=== PATIENT | male | born 1995 | race Caucasian/White ===

== ENCOUNTER 2019-08-24 06:19 | Emergency (ER) | payer OTHER ==
[~2019-08-24] VITALS: Ht 182.9 cm; Wt 113.6 kg
[2019-08-24] MEDS ORDERED: ALBUTEROL SULFATE 2.5 MG/0.5 ML INH NEB SOLN NEB ONE (07:15)
--- NOTE | 2019-08-24 07:37 | REP ---
Clinical: Cough and fever with shortness of breath. Comparison: None . Technique: PA and lateral. Findings: The mediastinum and cardiac silhouette are normal. The lung fernandez are clear and without acute consolidation, effusion, or pneumothorax. The skeletal structures are intact and normal. Impression: 1. No acute cardiopulmonary process. Electronically Signed by Eyad Mensah MD 08/24/2019 07:28 A
[2019-08-24 08:43] LABS: INFLUENZA A AMPLIFICATION NEGATIVE (NEGATIVE); INFLUENZA B AMPLIFICATION NEGATIVE (NEGATIVE)
[2019-08-24] MEDS ORDERED: VENTAER INH (09:05)
[2019-08-24] MEDS ORDERED: BENZ200C70 PO (09:05)
[2019-08-24 09:13] VITALS: BP 125/68
== END 2019-08-24 09:13 | disposition home or self-care (01) ==
LOC: M ED 06:19
DX: J06.9 Acute upper respiratory infection, unspecified (principal); B34.9 Viral infection, unspecified; R05 Cough; F17.200 Nicotine dependence, unspecified, uncomplicated; Z88.0 Allergy status to penicillin

== ENCOUNTER 2019-09-02 16:58 | Emergency (ER) | payer OTHER ==
[~2019-09-02] VITALS: Ht 182.9 cm; Wt 122.4 kg
[~2019-09-02 16:58] MED LIST: BENZ200C70 PO; VENTAER INH
--- NOTE | 2019-09-02 17:31 | REP ---
PA and lateral chest: Comparison is 08/24/2019. The lung fernandez are clear. The cardiac size is normal. The [place], mediastinum, and skeletal structures are unremarkable. Impression: Negative PA and lateral chest. There is no interval change. Electronically Signed by Kane Li MD 09/02/2019 05:23 P
[2019-09-02 18:03] LABS: INFLUENZA A AMPLIFICATION NEGATIVE (NEGATIVE); INFLUENZA B AMPLIFICATION NEGATIVE (NEGATIVE)
[2019-09-02] MEDS ORDERED: FLUTISP (18:50)
[2019-09-02 19:02] VITALS: BP 139/72
== END 2019-09-02 19:06 | disposition home or self-care (01) ==
LOC: M ED 16:58
DX: J06.9 Acute upper respiratory infection, unspecified (principal); Z88.0 Allergy status to penicillin

== ENCOUNTER 2019-09-22 19:11 | Emergency (ER) | payer OTHER ==
[~2019-09-22] VITALS: Ht 182.9 cm; Wt 111.4 kg
[~2019-09-22 19:11] MED LIST changes: +FLUTISP
[2019-09-22 20:23] LABS: HEMATOCRIT 43.4 % (42.0-52.0); HEMOGLOBIN 15.2 g/dl (13.5-17.5); MEAN CORPUSCULAR HEMOGLOBIN 31.5 pg (27.0-33.0); PLATELET COUNT, AUTOMATED 276 10^3/uL (150-450); RED BLOOD COUNT 4.82 10^6/uL (4.30-6.10); WHITE BLOOD COUNT 9.9 10^3/uL (4.0-10.0)
[2019-09-22 20:59] LABS: ACETAMINOPHEN LEVEL < 2.0 UG/ML (10.0-30.0); ALBUMIN 4.2 GM/DL (3.2-5.2); ALT/SGPT 50 U/L (12-78); BILIRUBIN,DIRECT 0.4 MG/DL (0.0-0.2); BILIRUBIN,TOTAL 2.3 MG/DL (0.2-1.0); BLOOD UREA NITROGEN 16 MG/DL (7-18); CALCIUM LEVEL 8.7 MG/DL (8.5-10.1); CARBON DIOXIDE LEVEL 26 MEQ/L (21-32); CHLORIDE LEVEL 109 MEQ/L (98-107); CREATININE FOR GFR 0.84 MG/DL (0.70-1.30); ETHYL ALCOHOL (ETHANOL) < 0.003 % (0.000-0.010); GLOMERULAR FILTRATION RATE > 60.0 (>60); GLUCOSE, FASTING 95 MG/DL (70-100); POTASSIUM SERUM 3.7 MEQ/L (3.5-5.1); SALICYLATE LEVEL < 1.7 MG/DL (5.0-30.0); SODIUM LEVEL 141 MEQ/L (136-145); TOTAL PROTEIN 7.6 GM/DL (6.4-8.2)
[2019-09-22 21:02] LABS: AMPHETAMINES LEVEL URINE NEGATIVE (NEGATIVE); BARBITURATES URINE NEGATIVE (NEGATIVE); BENZODIAZEPINES URINE NEGATIVE (NEGATIVE); CANNABINOIDS URINE NEGATIVE (NEGATIVE); COCAINE METABOLITE URINE NEGATIVE (NEGATIVE); METHADONE URINE NEGATIVE (NEGATIVE); OPIATES URINE NEGATIVE (NEGATIVE); PHENCYCLIDINE URINE NEGATIVE (NEGATIVE)
[2019-09-22] MEDS ORDERED: IBUP-1764 PO (21:29)
[2019-09-22] MEDS ORDERED: FLON1SPR (21:29)
[2019-09-22] MEDS ORDERED: VENTAER INH (21:29)
[2019-09-22 22:16] VITALS: BP 133/68
== END 2019-09-22 22:18 | disposition home or self-care (01) ==
LOC: M ED 19:11
DX: F43.0 Acute stress reaction (principal); J45.909 Unspecified asthma, uncomplicated; F17.200 Nicotine dependence, unspecified, uncomplicated; Z88.0 Allergy status to penicillin
CPT/HCPCS: 80048; 80076; 80307; 84443; 85027; 99284; G0480

== ENCOUNTER → 2019-12-09 | Outpatient (REF) | payer OTHER ==
[~2019-12-09] MED LIST changes: +FLON1SPR; +IBUP-1764 PO
== END ==
LOC: M LAB REF 16:38
PROVIDERS: ATTEND Nurse Practitioner Family
DX: R06.00 Dyspnea, unspecified (principal)

== ENCOUNTER 2019-12-20 08:25 | Emergency (ER) | payer OTHER ==
[~2019-12-20] VITALS: Ht 182.9 cm; Wt 120.2 kg
[2019-12-20] MEDS ORDERED: KETOROLAC 30 MG/ML 1ML VIAL IV ONE (08:45)
[2019-12-20] MEDS ORDERED: NS 1,000 ML IV ONE (08:45)
[2019-12-20] MEDS ORDERED: ONDANSETRON 4MG/2ML VIAL IV ONE (08:45)
--- NOTE | 2019-12-20 09:16 | REP ---
Clinical: Severe headache. Technique: Axial noncontrast images from the skull base to the vertex with coronal re-formations. . Findings: The ventricles, sulci, and cisterns are normal in position and appearance. Monroy-white differentiation is maintained. No acute intracranial hemorrhage, mass/mass effect, pathology or trauma/injury. No evidence for acute infarction. No extra-axial fluid collection. Calvarium is intact. Paranasal sinuses and mastoid air cells are clear. Impression: Normal noncontrast head CT. No evidence for acute intracranial pathology or trauma/injury. Electronically Signed by Eyad Mensah MD 12/20/2019 09:08 A
[2019-12-20 09:30] LABS: BASO # 0.1 10^3/uL (0.0-0.2); BASO % 0.7 % (0.0-1.0); EOS # 0.1 10^3/uL (0.0-0.5); EOS % 1.1 % (0.0-3.0); HEMATOCRIT 45.6 % (42.0-52.0); HEMOGLOBIN 15.7 g/dl (13.5-17.5); LYMPH # 1.9 10^3/uL (1.5-5.0); LYMPH % 22.2 % (24.0-44.0); MEAN CORPUSCULAR HGB CONC 34.4 g/dl (32.0-36.5); MEAN CORPUSCULAR VOLUME 90.1 fl (80.0-96.0); MONO # 0.6 10^3/uL (0.0-0.8); NEUTROPHILS # 5.7 10^3/uL (1.5-8.5); NEUTROPHILS % 68.5 % (36.0-66.0); PLATELET COUNT, AUTOMATED 281 10^3/uL (150-450); RED BLOOD COUNT 5.06 10^6/uL (4.30-6.10); WHITE BLOOD COUNT 8.4 10^3/uL (4.0-10.0)
[2019-12-20 10:00] LABS: ALBUMIN 3.9 GM/DL (3.2-5.2); BILIRUBIN,DIRECT 0.4 MG/DL (0.0-0.2); BILIRUBIN,TOTAL 1.9 MG/DL (0.2-1.0); TOTAL PROTEIN 7.7 GM/DL (6.4-8.2)
[2019-12-20] MEDS ORDERED: ACETAMINOPHEN 500 MG TAB PO ONE (10:15)
[2019-12-20 10:28] VITALS: BP 121/63
== END 2019-12-20 10:35 | disposition home or self-care (01) ==
LOC: M ED 08:25
DX: R51 Headache (principal); R11.2 Nausea with vomiting, unspecified; H53.8 Other visual disturbances; Z88.0 Allergy status to penicillin
CPT/HCPCS: 70450; 80047; 80076; 83690; 85025; 96374; 96375; 99284; J1885; J2405

== ENCOUNTER → 2020-01-05 | Outpatient (CLI) | payer OTHER ==
--- NOTE | 2020-01-06 16:09 | REP ---
Clinical: Dyspnea and hemoptysis with abnormal findings on chest x-ray. Technique: Axial noncontrast images from the thoracic inlet to the upper abdomen with coronal and sagittal re-formations. Findings: The bilateral lung fernandez are relatively well aerated. Minimal basilar and lingular fibroatelectatic changes are suggested. No focal consolidation, obvious nodule or mass. No pleural effusion. No pneumothorax. Tracheobronchial tree is patent. No obvious adenopathy. The mediastinum demonstrates relatively normal thoracic aorta, pulmonary vasculature, and heart/pericardium. Limited upper abdomen demonstrates normal bilateral adrenal glands. Surrounding musculoskeletal structures are intact. Impression: Minimal basilar and lingular fibroatelectatic changes. No further acute mediastinal or pleuroparenchymal process appreciated. Electronically Signed by Eyad Mensah MD 01/06/2020 04:00 P
== END ==
LOC: M RAD 11:05
PROVIDERS: ATTEND Nurse Practitioner Family
DX: R06.00 Dyspnea, unspecified (principal); R04.2 Hemoptysis; R91.8 Other nonspecific abnormal finding of lung field

== ENCOUNTER → 2020-01-10 | Outpatient (CLI) | payer OTHER ==
[~2020-01-10] MED LIST changes: +METHACHOLINE KIT (J7674) INH ONE
--- NOTE | 2020-01-10 09:23 | PFTRPT ---
Height: 72.00 Inches Weight: 265.00 Lbs BSA: 2.40 Diagnosis: R06.00 DATE OF PROCEDURE: 01/10/2020 ORDERED BY: Josephine Black INTERPRETATION: Study of excellent technical quality. Under protocol, methacholine was administered. At a dose of 0.25 mg or 1.375 CDUs, a 48% decline in the FEV1 was noted. PC of 0.04 is significant. Flow rates did return to near baseline post bronchodilator administration. IMPRESSION: Markedly positive methacholine challenge study. MTDD
== END ==
LOC: M CARPUL 08:37
PROVIDERS: ATTEND Nurse Practitioner Family
DX: R06.00 Dyspnea, unspecified (principal)
CPT/HCPCS: 94070; J7674